=== PATIENT | female | born 1960 | race African-American/Black ===

== ENCOUNTER 2017-05-04 12:54 | Emergency (ER) | payer OTHER ==
[~2017-05-04] VITALS: Ht 165.1 cm; Wt 166.0 kg
[~2017-05-04 12:54] MED LIST: 1-ME1LIQ PO; ALBI1INJ SQ; ALBU8I INH; ATEN-102 PO; ATOR20TA PO; BUTA1CAP8 PO; CHLO50TA PO; GABA300C3 PO; GLIM2TAB PO; ISOS30TA17 PO; LANS30 PO; LATA0.00 EACH EYE; LEVEMIR SQ; MAXI0.1O TOP; MECL25CH PO; METF-324 PO; NAPR250T57 PO; NITR.4 SL; TRAM50 PO
[2017-05-04 12:55] VITALS: BP 153/97; PULSE 83; RESP 18; TEMP 98.9; O2SAT 97
--- NOTE | 2017-05-04 13:40 | PD ---
HPI Chief Complaint: Abdominal Pain Time Seen by Provider: 13:39 Travel History International Travel<30 days: No Contact w/Intl Traveler<30days: No Traveled to known affect area: No History of Present Illness HPI 57-year-old female came to the emergency room with history of vomiting, diarrhea and left low quadrant abdominal pain. These all started together all of a sudden at 10 this morning. 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 Patient says she has had 7 episodes of diarrhea in the last one hour. There are watery and nonbloody. She has history of diabetes. No known sick contacts. Vital signs otherwise stable. She appears to be in moderate distress. The pain seems to get worse when she is going to have a bowel movement. PFSH Past Medical History Narrative Medical List of her past medical, surgical, social and family history is reviewed from the nursing note. Hx Anticoagulant Therapy: No Arthritis: Yes Asthma: Yes Blood Disorders: No Heart Rhythm Problems: No Cancer: No Cardiac Catheterization: Yes (2007) Cardiovascular Problems: Yes High Cholesterol: Yes Chemotherapy: No Chest Pain: Yes Congestive Heart Failure: No Diabetes: Yes Diminished Hearing: No Gastrointestinal Disorders: No Glaucoma: Yes Genitourinary: No Headaches: Yes Hypertension: Yes Musculoskeletal: Yes Neurologic: Yes Psychiatric: No Reproductive: No Respiratory: Yes Myocardial Infarction: Yes (2008) Radiation Therapy: No : 3 Para: 2 Miscarriage: 1 Past Surgical History AICD: No Arteriovenous Shunt: No Coronary Artery Bypass Graft: No Insulin Pump: No Joint Replacement: Yes (BILAT KNEE ARTHROSCOPY) Pacemaker: No Other Surgery: Yes Social History Alcohol Use: No Tobacco Use: No Substance Use: No Allergies-Medications (Allergen,Severity, Reaction): Coded Allergies: enalaprilat (Unverified Allergy, Severe, 05/04/17) Comments List of her allergies reviewed from the nursing note. Reported Meds & Prescriptions Reported Meds & Active Scripts Active Lomotil (Diphenoxylate-Atropine) 2.5-0.025 Mg Tab 1 Tab PO Q6H PRN Zofran Odt (Ondansetron Odt) 4 Mg Tab 4 Mg SL Q6HR PRN Reported Lantus Inj (Insulin Glargine) 1,000 Unit/10 Ml Vial 75 Units SQ HS Fioricet (Aixxtspphr-Weorqefjbphnk-Ptexgsbl) 50-300-40 Mg Cap 1 Cap PO DAILY PRN Flexeril (Cyclobenzaprine HCl) 10 Mg Tab 10 Mg PO Q8HR Diclofenac Sodium DR (Diclofenac Sodium) 75 Mg Tabdr 75 Mg PO BID PRN Chlorthalidone 25 Mg Tab 25 Mg PO DAILY Latanoprost Opth Drops (Latanoprost) 0.005% Drops 1 Drop EACH EYE HS Refrigerate until opened. Amlodipine (Amlodipine Besylate) 10 Mg Tab 10 Mg PO DAILY Atenolol 25 Mg Tab 50 Mg PO DAILY Tanzeum 4-Pack Inj (Albiglutide) 30 Mg Pfpen 30 Mg SQ WEEKLY Metformin (Metformin HCl) 500 Mg Tab 1,000 Mg PO BID Narrative Medication List of her home medications reviewed from the nursing note. Review of Systems Except as stated in HPI: all other systems reviewed are Neg Gastrointestinal: Positive: Nausea, Vomiting, Diarrhea, Abdominal Pain Physical Exam Narrative GENERAL: Awake, alert, moderate distress, obese SKIN: Focused skin assessment warm/dry. HEAD: Atraumatic. Normocephalic. EYES: Pupils equal and round. No scleral icterus. No injection or drainage. ENT: No nasal bleeding or discharge. Mucous membranes pink and moist. NECK: Trachea midline. No JVD. CARDIOVASCULAR: Regular rate and rhythm. No murmur appreciated. RESPIRATORY: No accessory muscle use. Clear to auscultation. Breath sounds equal bilaterally. GASTROINTESTINAL: Abdomen soft, left lower quadrant tenderness, nondistended. Hepatic and splenic margins not palpable. MUSCULOSKELETAL: No obvious deformities. No clubbing. No cyanosis. No edema. NEUROLOGICAL: Awake and alert. No obvious cranial nerve deficits. Motor grossly within normal limits. Normal speech. PSYCHIATRIC: Appropriate mood and affect; insight and judgment normal. Data Data Last Documented VS Vital Signs Date Time Temp Pulse Resp B/P (MAP) Pulse Ox O2 Delivery O2 Flow Rate FiO2 05/04/17 17:39 05/04/17 17:36 71 14 97 Room Air 05/04/17 12:55 98.9 Orders Orders Complete Blood Count With Diff (05/04/17 13:09) Comprehensive Metabolic Panel (05/04/17 13:09) Lipase (05/04/17 13:09) Prothrombin Time / Inr (Pt) (05/04/17 13:09) Act Partial Throm Time (Ptt) (05/04/17 13:09) Urinalysis - C+S If Indicated (05/04/17 13:09) Enteric Path (Stool) (05/04/17 13:50) C Diff Toxin Pcr (05/04/17 13:50) Ct Abd/Pel W/O Iv Contrast (05/04/17 ) Sodium Chlor 0.9% 1000 Ml Inj (Ns 1000 M (05/04/17 14:00) Ondansetron Inj (Zofran Inj) (05/04/17 14:00) Ketorolac Inj (Toradol Inj) (05/04/17 14:00) Sodium Chlor 0.9% 1000 Ml Inj (Ns 1000 M (05/04/17 15:00) Us Abdomen Gallbladder (05/04/17 ) Diphenoxylate/Atropine Tab (Lomotil Tab) (05/04/17 16:15) Ed Discharge Order (05/04/17 17:19) Labs Laboratory Tests Test 05/04/17 13:55 05/04/17 14:20 White Blood Count 13.2 TH/MM3 Red Blood Count 5.11 MIL/MM3 Hemoglobin 13.8 GM/DL Hematocrit 41.7 % Mean Corpuscular Volume 81.7 FL Mean Corpuscular Hemoglobin 27.0 PG Mean Corpuscular Hemoglobin Concent 33.1 % Red Cell Distribution Width 14.4 % Platelet Count 286 TH/MM3 Mean Platelet Volume 8.3 FL Neutrophils (%) (Auto) 84.4 % Lymphocytes (%) (Auto) 11.1 % Monocytes (%) (Auto) 4.0 % Eosinophils (%) (Auto) 0.2 % Basophils (%) (Auto) 0.3 % Neutrophils # (Auto) 11.1 TH/MM3 Lymphocytes # (Auto) 1.5 TH/MM3 Monocytes # (Auto) 0.5 TH/MM3 Eosinophils # (Auto) 0.0 TH/MM3 Basophils # (Auto) 0.0 TH/MM3 CBC Comment DIFF FINAL Differential Comment Prothrombin Time 10.5 SEC Prothromb Time International Ratio 1.0 RATIO Activated Partial Thromboplast Time 24.6 SEC Blood Urea Nitrogen 16 MG/DL Creatinine 1.02 MG/DL Random Glucose 321 MG/DL Total Protein 8.6 GM/DL Albumin 3.7 GM/DL Calcium Level 9.0 MG/DL Alkaline Phosphatase 146 U/L Aspartate Amino Transf (AST/SGOT) 13 U/L Alanine Aminotransferase (ALT/SGPT) 20 U/L Total Bilirubin 0.4 MG/DL Sodium Level 136 MEQ/L Potassium Level 4.5 MEQ/L Chloride Level 102 MEQ/L Carbon Dioxide Level 27.2 MEQ/L Anion Gap 7 MEQ/L Estimat Glomerular Filtration Rate 68 ML/MIN Lipase 156 U/L Urine Color YELLOW Urine Turbidity HAZY Urine pH 5.0 Urine Specific [place] 1.036 Urine Protein TRACE mg/dL Urine Glucose (UA) 1000 mg/dL Urine Ketones NEG mg/dL Urine Occult Blood NEG Urine Nitrite NEG Urine Bilirubin NEG Urine Urobilinogen LESS THAN 2.0 MG/DL Urine Leukocyte Esterase SMALL Urine RBC 2 /hpf Urine WBC 2 /hpf Urine Squamous Epithelial Cells 10 /hpf Urine Mucus FEW /lpf Microscopic Urinalysis Comment CULT NOT INDICATED Stool C. difficile Toxin (PCR) NEGATIVE Stl C. difficile Toxin Epiderm 027 PRESUMPTIVE NEGATIVE MDM Medical Decision Making Medical Screen Exam Complete: Yes Emergency Medical Condition: Yes Medical Record Reviewed: Yes Differential Diagnosis Viral gastroenteritis, C. difficile colitis, viral illness Narrative Course 2:14 PM awaiting for the blood test result. Patient has been given Zofran and IV fluid bolus and Toradol. Ordered for a CAT scan of her abdomen given the out of proportion pain. Awaiting for these test to be done and resulted. 4:10 PM blood test results are back and within acceptable limit. CT scan of the abdomen and pelvis was read by the radiologist as possible acute cholecystitis. He has recommended for an ultrasound which has been ordered. Waiting for the ultrasound be done and resulted. Patient's diarrhea seems to have slowed down. Since the stool C. difficile is negative I we will order her some Lomotil. Patient's last stool was 1 hour ago. Currently she is sleeping. 5:19 PM ultrasound has been done and resulted as normal from gallbladder standpoint. Patient has hepatic steatosis however. I will discharge her home. Procedures EKG Prior to Arrival: No Diagnosis Primary Impression: Acute gastroenteritis Additional Impressions: Dehydration Abdominal pain Qualified Codes: R10.84 - Generalized abdominal pain Referrals: Primary Care Physician 2 days Additional Instructions: Please return to the ER if the condition worsens or any other new concerns. Otherwise follow-up with your primary care next couple days. Eat Rodger diet that consists of banana, rice, applesauce, toast and tea. Take the medication as per the prescription direction. Med/Other Pt SpecificInfo: Prescription(s) given Scripts Diphenoxylate-Atropine (Lomotil) 2.5-0.025 Mg Tab 1 TAB PO Q6H Y for DIARRHEA, #10 TAB 0 Refills Prov: Slick Figueroa MD 05/04/17 Ondansetron Odt (Zofran Odt) 4 Mg Tab 4 MG SL Q6HR Y for Nausea/Vomiting, #10 TAB 0 Refills Prov: Slick Figueroa MD 05/04/17 Disposition: 01 DISCHARGE HOME Condition: Stable Slick Figueroa MD May 04, 2017 13:40
[2017-05-04] MEDS ORDERED: SODIUM CHLOR 0.9% 1000 ML INJ 1,000 ML IV ONE ×2 (14:00→15:00)
[2017-05-04] MEDS ORDERED: KETOROLAC TROMETHAMINE 30 MG/ML (IVP) VIAL IV PUSH ONE (14:00)
[2017-05-04] MEDS ORDERED: ONDANSETRON HCL 4 MG/2 ML VIAL IV PUSH ONE (14:00)
[2017-05-04 14:15] LABS: AUTOMATED NEUTROPHIL # 11.1 TH/MM3 (1.8-7.7); BASOPHIL % 0.3 % (0.0-2.0); EOSINOPHIL % 0.2 % (0.0-4.0); HEMATOCRIT 41.7 % (35.0-46.0); HEMO FLAGS DIFF FINAL; LYMPH % 11.1 % (9.0-44.0); LYMPHOCYTE # 1.5 TH/MM3 (1.0-4.8); MEAN CELL VOLUME 81.7 FL (80.0-100.0); MEAN CORPUSCULAR HGB CONC 33.1 % (32.0-36.0); NEUT % 84.4 % (16.0-70.0); PLATELET COUNT 286 TH/MM3 (150-450); RED BLOOD COUNT 5.11 MIL/MM3 (4.00-5.30); RED CELL DISTRIBUTION WIDTH 14.4 % (11.6-17.2); WHITE BLOOD COUNT 13.2 TH/MM3 (4.0-11.0)
[2017-05-04 14:30] LABS: ANION GAP 7 MEQ/L (5-15); AST (GOT) 13 U/L (15-37); BICARBONATE 27.2 MEQ/L (21.0-32.0); BLOOD UREA NITROGEN 16 MG/DL (7-18); CHLORIDE 102 MEQ/L (98-107); GLOMERULAR FILTRATION RATE 68 ML/MIN (>89); POTASSIUM 4.5 MEQ/L (3.5-5.1); SODIUM (NA) 136 MEQ/L (136-145)
[2017-05-04 14:32] LABS: APTT (PATIENT) 24.6 SEC (24.3-30.1); PROTHROMBIN TIME - PATIENT 10.5 SEC (9.8-11.6)
[2017-05-04 14:33] LABS: ALKALINE PHOSPHATASE 146 U/L (45-117); ALT (GPT) 20 U/L (10-53); TOTAL BILIRUBIN ADULT 0.4 MG/DL (0.2-1.0)
[2017-05-04 14:48] LABS: BLOOD, URINE NEG (NEG); COMMENT (UR) CULT NOT INDICATED; CULTURE IF INDICATED CULT NOT INDICATED; GLUCOSE,URINE 1000 mg/dL (NEG); KETONE, URINE NEG (NEG); MUCUS URINE FEW /lpf (OCC); NITRITE,URINE NEG (NEG); SQUAMOUS EPITHELIAL CELL URINE 10 /hpf (0-5); URINE COLOR YELLOW (YELLW/STRAW)
[2017-05-04 15:31] LABS: C. DIFF EPI 027 PRESUMPTIVE NEGATIVE (NEGATIVE)
--- NOTE | 2017-05-04 15:38 | RADRPT ---
EXAM DATE/TIME: 05/04/2017 14:11 [facility] COMPARISON: No previous studies available for comparison. INDICATIONS : Upper abdominal pain, nausea, vomiting. ORAL CONTRAST: No oral contrast ingested. RADIATION DOSE: 21.05 CTDIvol (mGy) MEDICAL HISTORY : Cardiovascular disease. Diabetes mellitus type 2. Hypertension.Asthma. SURGICAL HISTORY : None. ENCOUNTER: Initial ACUITY: 1 day PAIN SCALE: 3/10 LOCATION: Bilateral upper quadrant TECHNIQUE: Volumetric scanning of the abdomen and pelvis was performed. Using automated exposure control and ad justment of the mA and/or kV according to patient size, radiation dose was kept as low as reasonably achievable to obtain optimal diagnostic quality images. DICOM format image data is available electro nically for review and comparison. FINDINGS: The lung base is are clear. The liver is free of focal defects. The spleen, pancreas and adrenals unremarkable Gallbladder wall is thickened. Cannot exclude gallstones or cholecystitis. Right and left kidneys are unremarkable There is no free fluid. There is no intracranial adenopathy Pelvic contents are unremarkable There is no abdominal wall hernia. CONCLUSION: Abnormal gallbladder. Cholecystitis cannot be excluded. Ultrasound may be of benefit. Elvis Lieberman MD FACR on May 04, 2017 at 15:34 Board Certified Radiologist. This report was verified electronically.
[2017-05-04] MEDS ORDERED: CYCL10TA PO (16:01)
[2017-05-04] MEDS ORDERED: BUTA1CAP PO (16:01)
[2017-05-04] MEDS ORDERED: CHLO25TA2 PO (16:01)
[2017-05-04] MEDS ORDERED: LATA0.002 EACH EYE (16:01)
[2017-05-04] MEDS ORDERED: ATEN25TA PO (16:01)
[2017-05-04] MEDS ORDERED: DICL75TA PO (16:01)
[2017-05-04] MEDS ORDERED: AMLO10TA2 PO (16:01)
[2017-05-04] MEDS ORDERED: METF500T PO (16:01)
[2017-05-04] MEDS ORDERED: ALBI1INJ SQ (16:01)
[2017-05-04] MEDS ORDERED: LANTUS2P SQ (16:02)
[2017-05-04] MEDS ORDERED: DIPHENOXYLATE/ATROPINE 2.5 MG/0.025 MG TAB PO ONE (16:15)
--- NOTE | 2017-05-04 17:09 | RADRPT ---
EXAM DATE/TIME: 05/04/2017 16:20 [facility] COMPARISON: CT ABDOMEN & PELVIS W/O CONTRAST, May 04, 2017, 14:11. INDICATIONS : Abdominal pain and nausea. MEDICAL HISTORY : Hypercholesterolemia. Hypertension. Mycoardial infarction. Asthma. Arthritis. Diabetes. SURGICAL HISTORY : Cardiac catheterization. Bilateral knee surgery. C4-C6 fusion. Bilateral knee arthroscopy. ENCOUNTER: Initial ACUITY: 1 day PAIN SCORE: 7/10 LOCATION: Right upper quadrant MEASUREMENTS: LIVER: 20.3 cm length COMMON DUCT: 6 mm RIGHT KIDNEY: 10.9 x 5.0 x 4.9 cm FINDINGS: LIVER: Mild diffuse hepatic echogenicity with hepatomegaly. No significant focal mass or intrapelvic ductal dilatation. COMMON DUCT: No intraluminal mass or stone visualized. GALLBLADDER: Contains no stones, demonstrates no wall thickening or pericholecystic fluid. PANCREAS: The visualized portions are within normal limits. RIGHT KIDNEY: No evidence of hydronephrosis, stone, or mass. CONCLUSION: 1. Unremarkable sonographic appearance of the gallbladder. No sonographic evidence for cholelithiasis or acute cholecystitis. 2. Hepatomegaly with diffusely increased echogenicity consistent with hepatic steatosis versus medica l renal disease. Alejo Best MD on May 04, 2017 at 17:06 Board Certified Radiologist. This report was verified electronically.
[2017-05-04] MEDS ORDERED: LOMO2.5T PO (17:21)
[2017-05-04] MEDS ORDERED: ZOFR4TAB3 SL (17:21)
[2017-05-04 17:36] VITALS: BP 129/66; PULSE 71; RESP 14; O2SAT 97
== END 2017-05-04 18:04 | disposition home or self-care (01) ==
LOC: NEPE 12:54
DX: K52.9 Noninfective gastroenteritis and colitis, unspecified (principal); E86.0 Dehydration; I10 Essential (primary) hypertension; E11.9 Type 2 diabetes mellitus without complications; J45.909 Unspecified asthma, uncomplicated; E78.00 Pure hypercholesterolemia, unspecified; H40.9 Unspecified glaucoma; M19.90 Unspecified osteoarthritis, unspecified site
CPT/HCPCS: 74176; 76705; 80053; 81001; 83690; 85025; 85610; 85730; 87493; 87506; 96361; 96374; 96375; 99285; J1885; J2405; J7030